=== PATIENT | female | born 1950 | race Caucasian/White ===

== ENCOUNTER → 2016-08-24 | Outpatient (CLI) | payer BC ==
--- NOTE | 2016-08-25 13:31 | MAMMOGRAPHY REPORT ---
BILATERAL DIGITAL SCREENING MAMMOGRAM WITH CAD: 08/24/2016 CLINICAL HISTORY: Routine screening. Patient has no complaints. TECHNIQUE: Current study was also evaluated with a Computer Aided Detection (CAD) system. Bilatera l CC and MLO views were obtained. COMPARISON: Comparison is made to exams dated: 06/04/2013 mammogram, 10/06/2011 mammogram - [facility], 12/22/2008, and 12/17/2008. BREAST COMPOSITION: There are scattered areas of fibroglandular density in both breasts. FINDINGS: No suspicious masses, calcifications, or areas of architectural distortion are noted in e ither breast. There has been no significant interval change compared to prior exams. IMPRESSION: ACR BI-RADS CATEGORY 1: NEGATIVE There is no mammographic evidence of malignancy. A 1 year screening mammogram is recommended. The p atient will receive written notification of the results. Approximately 10% of breast cancers are not detected with mammography. A negative mammographic repor t should not delay biopsy if a clinically suggestive mass is present. Ayaka Tuttle M.D. ah/:08/24/2016 15:42:44 Encoding Clerk: Nuvia BUCKLEY(Sherri)(Nam)([place]), [facility] letter sent: Normal 1/2 BI-RADS Code: ACR BI-RADS Category 1: Negative
== END | disposition home or self-care (01) ==
LOC: C.MAMM 14:23
PROVIDERS: ATTEND Family Medicine
DX: Z12.31 Encounter for screening mammogram for malignant neoplasm of breast (principal)

== ENCOUNTER → 2017-09-11 | Outpatient (CLI) | payer BC, OTHER | END | disposition home or self-care (01) | LOC: C.MAMM 10:20 | PROVIDERS: ATTEND Internal Medicine | DX: M85.852 Other specified disorders of bone density and structure, left thigh (principal) ==

== ENCOUNTER → 2017-10-16 | Outpatient (CLI) | payer BC ==
--- NOTE | 2017-10-16 12:47 | MAMMOGRAPHY REPORT ---
BILATERAL DIGITAL SCREENING MAMMOGRAM TOMOSYNTHESIS WITH CAD: 10/16/2017 CLINICAL HISTORY: Routine screening. Patient has no complaints. TECHNIQUE: Breast tomosynthesis in addition to standard 2D mammography was performed. Current study was also evaluated with a Computer Aided Detection (CAD) system. COMPARISON: Comparison is made to exams dated: 08/24/2016 mammogram, 06/04/2013 mammogram, 10/06/2011 [facility], 12/22/2008, and 12/17/2008. BREAST COMPOSITION: There are scattered areas of fibroglandular density in both breasts. FINDINGS: The parenchymal pattern is unchanged. No developing mass, architectural distortion or clus ter of suspicious microcalcifications is seen in either breast. IMPRESSION: ACR BI-RADS CATEGORY 2: BENIGN There is no mammographic evidence of malignancy. A 1 year screening mammogram is recommended. The pa tient will receive written notification of the results. Approximately 10% of breast cancers are not detected with mammography. A negative mammographic report should not delay biopsy if a clinically suggestive mass is present. Allie Jansen M.D. ay/:10/16/2017 12:30:39 Pull Socket Assembler: Sana Mancia [facility] letter sent: Normal /2 BI-RADS Code: ACR BI-RADS Category 2: Benign
== END | disposition home or self-care (01) ==
LOC: C.MAMM 11:54
PROVIDERS: ATTEND Internal Medicine
DX: Z12.31 Encounter for screening mammogram for malignant neoplasm of breast (principal)

== ENCOUNTER → 2018-01-15 | Outpatient (CLI) | payer BC ==
[2018-01-15 10:46] LABS: ALT/SGPT 26 U/L (12-78); AST/SGOT 16 U/L (15-37); BLOOD UREA NITROGEN 20 mg/dl (7-18); CALCIUM 8.6 mg/dl (8.5-10.1); CARBON DIOXIDE 28 mmol/L (21-32); CHOLESTEROL 243 mg/dl (0-200); CREATININE 0.95 mg/dl (0.60-1.20); GLUCOSE 102 mg/dl (70-99); LDL CHOLESTEROL CALCULATED 146 mg/dl; POTASSIUM 4.3 mmol/L (3.5-5.1); SODIUM 139 mmol/L (136-145)
== END | disposition home or self-care (01) ==
LOC: C.LABBC 07:38
PROVIDERS: ATTEND Internal Medicine
DX: E78.00 Pure hypercholesterolemia, unspecified (principal); I10 Essential (primary) hypertension; M85.80 Other specified disorders of bone density and structure, unspecified site

== ENCOUNTER 2019-04-21 17:00 | Inpatient (IN) ==
[2019-04-21] MEDS ORDERED: SODIUM CHLORIDE 0.9% 1000ML 1,000 ML IV ONE (17:21)
[2019-04-21] MEDS ORDERED: IBUPROFEN 200 MG TAB PO STA (17:28)
--- NOTE | 2019-04-21 17:59 | XRay Report ---
XR chest 1V portable CLINICAL HISTORY: Sepsis dyspnea COMPARISON STUDY: No previous studies for comparison. FINDINGS: Focal parenchymal infiltrate right midlung. Lungs otherwise appear clear. No significant ca rdiac enlargement. IMPRESSION: Focal parenchymal infiltrate right midlung. This should be followed at a later date with repeat chest film to ensure complete resolution The above report was generated using voice recognition software. It may contain grammatical, syntax or spelling errors. Electronically signed by: Yair Kumar M.D. 04/21/2019 5:58 PM
[2019-04-21 18:10] LABS: Basophils # (auto) 0.05 K/uL (0-0.2); Basophils % (auto) 0.4 %; Hemoglobin 14.8 g/dL (12.0-16.0); Immature Granulocytes # (auto) 0.02 K/uL (0.00-0.02); Immature Granulocytes % (auto) 0.2 %; Lymphocytes # (auto) 1.31 K/uL (1.2-3.4); Lymphocytes % (auto) 11.3 %; Mean Corpuscular Hemoglobin 31.8 pg (25-34); Mean Corpuscular Hgb Conc 34.4 g/dL (32-36); Mean Corpuscular Volume 92.5 fL (80-100); Mean Platelet Volume 9.4 fL (7.4-10.4); Monocytes # (auto) 0.85 K/uL (0.11-0.59); Monocytes % (auto) 7.3 %; Neutrophils # (auto) 9.41 K/uL (1.4-6.5); Neutrophils % (auto) 80.8 %; Platelet Count 289 K/uL (130-400); RDW Coefficient of Variation 14.1 % (11.5-14.5); RDW Standard Deviation 47.7 fL (36.4-46.3); Red Blood Count 4.65 M/uL (4.2-5.4); White Blood Count 11.64 K/uL (4.8-10.8)
[2019-04-21 18:21] LABS: Partial Thromboplastin Ratio 0.9; Partial Thromboplastin Time 24.1 Seconds (21.0-31.0); Prothrombin Time 10.7 Seconds (9.0-12.0)
[2019-04-21 18:26] LABS: Blood Urea Nitrogen 14 mg/dl (7-18); Carbon Dioxide 23 mmol/L (21-32); Chloride 103 mmol/L (98-107); Potassium 3.8 mmol/L (3.5-5.1); Sodium 136 mmol/L (136-145)
[2019-04-21 18:27] LABS: Alanine Aminotransferase 19 U/L (12-78); Albumin Level 3.9 gm/dl (3.4-5.0); Aspartate Aminotransferase 10 U/L (15-37); BUN Creatinine Ratio 12.8 (10-20); Calcium 9.1 mg/dl (8.5-10.1); Est GFR (African American) 62.5; Est GFR (Non-African American) 53.9; Glucose 113 mg/dl (70-99)
[2019-04-21 18:29] LABS: Albumin Globulin Ratio 0.9 (0.9-2); Alkaline Phosphatase 78 U/L (45-117); Bilirubin,Total 0.4 mg/dl (0.2-1); Globulin 4.2 gm/dl (2.5-4.0); Total Protein 8.1 gm/dl (6.4-8.2)
[2019-04-21] MEDS ORDERED: cefTRIAXone SODIUM 2,000 MG/70 ML BAG IV STA (18:29)
[2019-04-21] MEDS ORDERED: AZITHROMYCIN 500 MG in DEXTROSE 5% 250 ML IV STA (18:29)
[2019-04-21 18:52] LABS: Procalcitonin 0.06 ng/ml (0-0.5)
[2019-04-21 18:52] LABS: Influenza A virus by PCR Neg for Influ A (Neg); Influenza B virus by PCR Neg for Influ B (Neg)
[2019-04-21 19:00] LABS: Lyme Ab IgG w/WB Rflx Negative (Negative); Lyme Ab IgM w/WB Rflx Negative (Negative)
--- NOTE | 2019-04-21 20:03 | History & Physical Report ---
Date of Service April 21, 2019 Assessment & Plan (1) Pneumonia: Likely community acquired as patient has no risk factors for HCAP. In the ED she was satting as low as 85 on room air, which improved to 94 with supplemental O2. She was tachycardic at 102, and febrile at 39.4. Her WBC was mildly elevated at 11.64 with a left shift. Procalcitonin was WNL. Influenza negative. CXR remarkable for a focal parenchymal infiltrate right midlung. She was given one dose of IV ceftriaxone 2,000mg, one dose of IV Azithromycin 500mg and a 1L bolus of normal saline. Hospitalist recommend admission as inpatient. -continue zithormax 500mg, IV -continue Ceftriaxone, 1,000mg, IV - maintenance fluids: normal saline at 80mls/hr - mucinex ordered prn - tylenol ordered prn for fever - guanfacine ordered prn for cough Present on Admission?: Yes (2) Sepsis: - SIRS criteria met (temperature of 39.4, pulse 102) with infectious source identified (likely R middle lobar PNA) - clinically appearing well and hemodynamically stable - On IVF and IV antibiotics - blood cultures pending Present on Admission?: Yes (3) Hypoxemia: Currently satting 94 on 2L oxygen via NC -continuous oxygen ordered -pulse ox Status: Med/Surg FEN/GI: Regular diet. On maintenance fluids NSS at 80mls/hr DVT ppx: Lovenox, 40mg, SQ, daily CODE: FULL Present on Admission?: Yes History of Present Illness Primary Care Provider: Pepito Telles MD Mrs. Ramirez is an otherwise healthy 69 yo woman who presented to the ED this evening with fevers/chills, generalized weakness and fatigue, productive cough and chest tightness. She complained of a preceding viral prodrome of upper respiratory tract symptoms over the past 2 weeks. She started to feel improvement in these symptoms before suddenly getting worse 2 days ago. Her fevers were as high as 102.6 at home. Tylenol was used as an anti-pyretic every 6 hours. She attempted to get an appointment with her PCP today but was advised by nurse to come to the emergency room. She is not in any discomfort at present. She endorses several sick contacts, although no one with a diagnosis of PNA. She has not traveled outside the [place] int he past 6 months. No risk factors for HCAP (does not live in a fpc, not on a ventilator, no hospitalizations in the past 90 days). In the ED she was satting as low as 85 on room air, which improved with supplemental O2. She was tachycardic at 102, and febrile at 39.4. Her WBC was mildly elevated at 11.64 with a left shift. Procalcitonin was WNL. Influenza negative. CXR remarkable for a focal parenchymal infiltrate right midlung. She was given one dose of IV ceftriaxone 2,000mg, one dose of IV Azithromycin 500mg and a 1L bolus of normal saline. Allergies Allergy/AdvReac Type Severity Reaction Status Date / Time prochlorperazine Allergy Unknown Verified 04/21/19 20:02 COMPAZINE Allergy Unknown Anaphylaxis Uncoded 04/21/19 20:02 Home Medications Home Medications Medication Instructions Recorded Confirmed Type aspirin 81 mg tablet 81 mg PO QAM #30 tab 01/31/19 04/21/19 History loratadine 10 mg tablet 10 mg PO DAILY tab 01/31/19 04/21/19 History lisinopril 5 mg tablet 5 mg PO DAILY #90 tab 02/05/19 04/21/19 Rx cholecalciferol (vitamin D3) 8,000 unit PO DAILY 04/21/19 04/21/19 History Past Med/Surg History Medical History Osteopenia Hx of hysterectomy Hx of tooth extraction Surgical History Hx of colonoscopy Hx of laparoscopy Family History Aunt Breast cancer Diabetes Grandmother (Paternal) Lung cancer Myocardial infarction Heart disease Grandfather (Paternal) Prostate cancer Myocardial infarction Heart disease Father Prostate cancer Myocardial infarction Heart disease Mother Diabetes Heart disease Hypertension Hypothyroidism Pure hypercholesterolemia Lung disease Histoplasmosis Grandmother (Maternal) Diabetes Heart disease Grandfather (Maternal) Diabetes Heart disease Social History Preferred Language: Japanese Communication Ability: Effective Visual Impairment: Limited Hearing Ability: Normal Naval Engineer Required: No Beliefs That Will Affect Care: None marital status: Current Living Situation: Spouse current occupational status: retired current occupation: professor Feels Safe at Home: Yes Smoking Status: Never smoker Second Hand Exposure: No ; Hx Alcohol Use: Yes Alcohol type: wine Alcohol Intake Frequency: Weekly Hx Substance Use: No Childhood Exposure to Second-Hand Smoke: No caffeine: Yes Dental Care, Regularly: Yes Physical Activity Frequency: Daily Seatbelt Use: always Sunscreen Use: Yes Review of Systems Constitutional: + fever, + chills, + fatigue and + weakness Ear, Nose, Mouth, Throat: no ear pain, no nasal congestion and no sore throat Respiratory: + cough, + chest congestion, + dyspnea and + sputum production Cardiovascular: no chest pain, no palpitations and no edema Physical Exam Constitutional: WD/WN, vitals as above cooperative; no acute distress Eyes: PERRL, conjunctivae normal, anicteric sclerae ENMT: external ear and nose normal, oropharynx normal Ears: no TM abnormality Nose: no nasal discharge and no sinus tenderness Mouth: no oropharynx abnormality Throat: uvula midline; no tonsil abnormality Neck: trachea midline Respiratory: normal respiratory effort and + cough; no respiratory distress, no labored breathing, no retractions, does not use accessory muscles and no audible wheezes Auscultation: + crackles (R lower and middle lobes) and + egophony (R lower/middle lobe) Cardiovascular: Rate/Rhythm: regular rate and regular rhythm Heart Sounds: normal S1, normal S2 and + murmur (functional) Gastrointestinal (Abdomen): normal bowel sounds, soft, nontender, no hepatosplenomegaly Musculoskeletal: Head/Neck/Chest: normocephalic and head atraumatic Skin: no rashes, warm and dry Psychiatric: A+Ox3, euthymic affect Lymphatic: no cervical lymphadenopathy Results & Data Vital Signs (Past 12 Hours) Vital Signs Temp Pulse Pulse Resp BP BP Pulse Ox 04/21/19 19:34 38.2 C H 04/21/19 19:32 86 20 149/78 H 94 04/21/19 19:06 88 17 169/75 H 95 04/21/19 18:48 85 L 04/21/19 18:04 93 04/21/19 17:05 39.4 C H 102 H 20 147/79 H 96 Laboratory Results 04/21/19 04/21/19 04/21/19 Range/Units 17:57 17:52 17:52 WBC (4.8-10.8) K/uL RBC (4.2-5.4) M/uL Hgb (12.0-16.0) g/dL Hct (37-47) % MCV (80-100) fL MCH (25-34) pg MCHC (32-36) g/dL RDW Std Deviation (36.4-46.3) fL RDW Coeff of Kitty (11.5-14.5) % Plt Count (130-400) K/uL MPV (7.4-10.4) fL Immature Gran % (Auto) % Neut % (Auto) % Lymph % (Auto) % [place] % (Auto) % Eos % (Auto) % Baso % (Auto) % Immature Gran # (Auto) (0.00-0.02) K/uL Neut # (Auto) (1.4-6.5) K/uL Lymph # (Auto) (1.2-3.4) K/uL [place] # (Auto) (0.11-0.59) K/uL Eos # (Auto) (0-0.5) K/uL Baso # (Auto) (0-0.2) K/uL PT (9.0-12.0) Seconds INR (0.9-1.1) APTT (21.0-31.0) Seconds PTT Ratio Sodium 136 (136-145) mmol/L Potassium 3.8 (3.5-5.1) mmol/L Chloride 103 (98-107) mmol/L Carbon Dioxide 23 (21-32) mmol/L Anion Gap 10.0 (3-11) BUN 14 (7-18) mg/dl Creatinine 1.06 (0.6-1.2) mg/dl Est Cr Clr Drug Dosing Not Reportable Est GFR ( Amer) 62.5 Est GFR (Non-Af Amer) 53.9 BUN/Creatinine Ratio 12.8 (10-20) Glucose 113 H (70-99) mg/dl Lactate 1.1 (0.4-2.0) mmol/L Calcium 9.1 (8.5-10.1) mg/dl Total Bilirubin 0.4 (0.2-1) mg/dl AST 10 L (15-37) U/L ALT 19 (12-78) U/L Alkaline Phosphatase 78 (45-117) U/L Total Protein 8.1 (6.4-8.2) gm/dl Albumin 3.9 (3.4-5.0) gm/dl Globulin 4.2 H (2.5-4.0) gm/dl Albumin/Globulin Ratio 0.9 (0.9-2) Procalcitonin (0-0.5) ng/ml Anaplasma Smear Lyme Disease IgG Ab (Negative) Lyme Disease IgM Ab (Negative) Influenza Type A (PCR) Neg for Influ A (Neg) Influenza Type B (PCR) Neg for Influ B (Neg) 04/21/19 04/21/19 04/21/19 Range/Units 17:52 17:52 17:52 WBC 11.64 H (4.8-10.8) K/uL RBC 4.65 (4.2-5.4) M/uL Hgb 14.8 (12.0-16.0) g/dL Hct 43.0 (37-47) % MCV 92.5 (80-100) fL MCH 31.8 (25-34) pg MCHC 34.4 (32-36) g/dL RDW Std Deviation 47.7 H (36.4-46.3) fL RDW Coeff of Kitty 14.1 (11.5-14.5) % Plt Count 289 (130-400) K/uL MPV 9.4 (7.4-10.4) fL Immature Gran % (Auto) 0.2 % Neut % (Auto) 80.8 % Lymph % (Auto) 11.3 % [place] % (Auto) 7.3 % Eos % (Auto) 0.0 % Baso % (Auto) 0.4 % Immature Gran # (Auto) 0.02 (0.00-0.02) K/uL Neut # (Auto) 9.41 H (1.4-6.5) K/uL Lymph # (Auto) 1.31 (1.2-3.4) K/uL [place] # (Auto) 0.85 H (0.11-0.59) K/uL Eos # (Auto) 0.00 (0-0.5) K/uL Baso # (Auto) 0.05 (0-0.2) K/uL PT 10.7 (9.0-12.0) Seconds INR 1.0 (0.9-1.1) APTT 24.1 (21.0-31.0) Seconds PTT Ratio 0.9 Sodium (136-145) mmol/L Potassium (3.5-5.1) mmol/L Chloride (98-107) mmol/L Carbon Dioxide (21-32) mmol/L Anion Gap (3-11) BUN (7-18) mg/dl Creatinine (0.6-1.2) mg/dl Est Cr Clr Drug Dosing Est GFR ( Amer) Est GFR (Non-Af Amer) BUN/Creatinine Ratio (10-20) Glucose (70-99) mg/dl Lactate (0.4-2.0) mmol/L Calcium (8.5-10.1) mg/dl Total Bilirubin (0.2-1) mg/dl AST (15-37) U/L ALT (12-78) U/L Alkaline Phosphatase (45-117) U/L Total Protein (6.4-8.2) gm/dl Albumin (3.4-5.0) gm/dl Globulin (2.5-4.0) gm/dl Albumin/Globulin Ratio (0.9-2) Procalcitonin 0.06 (0-0.5) ng/ml Anaplasma Smear See Comment Lyme Disease IgG Ab Negative (Negative) Lyme Disease IgM Ab Negative (Negative) Influenza Type A (PCR) (Neg) Influenza Type B (PCR) (Neg) Diagnostic Findings XR chest 1V portable CLINICAL HISTORY: Sepsis dyspnea COMPARISON STUDY: No previous studies for comparison. FINDINGS: Focal parenchymal infiltrate right midlung. Lungs otherwise appear clear. No significant cardiac enlargement. IMPRESSION: Focal parenchymal infiltrate right midlung. This should be followed at a later date with repeat chest film to ensure complete resolution The above report was generated using voice recognition software. It may contain grammatical, syntax or spelling errors. Electronically signed by: Yair Kumar M.D. 04/21/2019 5:58 PM Medications Administered Current Inpatient Medications Azithromycin 500 mg/ Dextrose 255 mls @ 127.5 mls/hr IV NOW STA Stop: 04/21/19 20:28 Last Admin: 04/21/19 19:32 Dose: 127.5 mls/hr Documented by: Code Status & VTE Plan VTE Prophylaxis Plan VTE Prophylaxis will be ordered: Yes Supervising Physician Co-Signing Physician Notes Patient seen and examined, chart reviewed, case discussed with Dr. Wright and I agree with her assessment and plan as documented above. Briefly, patient is a 69yo C female presenting with CAP. Patient is febrile, tachycardic, O2 required in ER due to sat of 85%. Now improved. On exam she is febrile, tachycardic otherwise HD stable, NAD, well appearing Skin - no rash HEENT - NC/AT, PERRL, EOMI, MMM, neck supple Heart - +S1/S2, regular, 3/6 GEOFFREY Lungs - +crackles right mid-lung, no wheezes Abd - +BS, soft, NT/ND Ext - no edema Labs and images reviewed. +Leukocytosis. +RML infiltrate noted on CXR Assessment/Plan: 69yo healthy female presenting with CAP -Azithromycin/Ceftriaxone/symptomatic management -Supplemental O2 as needed -Remainder of plan as above PG Care Time/CCT Total # of Minutes Spent Total Time Spent with Patient: Total time spent is greater than 50% in coordination of care (as documented) at patient's floor/unit and/or counseling patient: Resident Activity Tracking Resident Involvement: Resident Care Provided Care Provided: Adult Hospital Medicine (1) Pneumonia Laterality: right Lung location: middle lobe of lung Pneumonia type: due to unspecified organism Qualified Code(s): J18.1 - Lobar pneumonia, unspecified organism
[2019-04-21] MEDS ORDERED: GUANFACINE HCL 1 MG TAB PO SCH (21:05)
[2019-04-21] MEDS ORDERED: cefTRIAXone SODIUM 1,000 MG/50 ML BAG IV STA (21:05)
[2019-04-21] MEDS ORDERED: ALUMINUM/MAGNESIUM SUSP 30 ML UDC PO PRN (21:05)
[2019-04-21] MEDS ORDERED: ONDANSETRON INJ 2 MG/ML 2 ML VIAL IV PRN (21:05)
[2019-04-21] MEDS ORDERED: AZITHROMYCIN 500 MG in DEXTROSE 5% 250 ML IV SCH (21:05)
[2019-04-21] MEDS ORDERED: GUANFACINE HCL 1 MG TAB PO PRN (21:34)
[2019-04-21] MEDS: SODIUM CHLORIDE 0.9% 1000ML 1,000 ML IV SCH (21:49)
[2019-04-21] MEDS: guaiFENesin 600 MG TABCR PO SCH (22:31)
[2019-04-21] MEDS: ENOXAPARIN INJ 40 MG/0.4 ML SYR SQ SCH (22:31)
--- NOTE | 2019-04-22 00:27 | Emergency Department Note ---
Entered by Dimple Wolfe acting as a scribe for Robert Henriquez MD History of Present Illness General Chief complaint: Flu Like Symptoms Stated complaint: cough, chest tighness, fever Time Seen by Provider: 04/21/19 17:12 Source: patient History of Present Illness Onset (ago): week(s) 3 Location: left (lung) and right (lung) Severity: similar to prior episodes Pain Consistency: + other (persistent) Maximum Pain Intensity: 1 Quality: + other (cough) Relieved By: + medication (tylenol) Exacerbated By: + movement Associated symptoms: + cough, + fever/chills and + headaches; no chest pain, no nausea/vomiting, no rash and no other (abdominal pain, dysuria, hematuria.) Treatments prior to arrival: other (tylenol) The patient is a 69 year old female presenting to the Emergency Department complaining of a persistent cough starting 3 weeks ago. The patient reports that she has a cough that is bringing up a green colored mucous. She states that her cough recently has been dry for the past few days. She explains that she has been experiencing fever and chills. She notes that her highest fever was 102.6F. She adds that when she gets up and moves around she experienced chills. The patient reports that she had a headache earlier today. She states that she took Tylenol for this headache at 1430 [employer] and that it helped relieve her headache. She explains that she experienced similar symptoms years ago and was diagnosed with pneumonia at that time. The patient denies nausea, vomiting, abdominal pain, dysuria, hematuria, rash and any known recent tick bites. Home Medications Home Medications Medication Instructions Recorded Confirmed Type aspirin 81 mg tablet 81 mg PO QAM #30 tab 01/31/19 04/21/19 History loratadine 10 mg tablet 10 mg PO DAILY tab 01/31/19 04/21/19 History lisinopril 5 mg tablet 5 mg PO DAILY #90 tab 02/05/19 04/21/19 Rx cholecalciferol (vitamin D3) 8,000 unit PO DAILY 04/21/19 04/21/19 History Allergies Allergy/AdvReac Type Severity Reaction Status Date / Time prochlorperazine Allergy Severe Anaphylaxis Verified 04/21/19 21:24 Past Med/Surg History Medical History Osteopenia Hx of hysterectomy Hx of tooth extraction Surgical History Hx of colonoscopy Hx of laparoscopy Family History Aunt Breast cancer Diabetes Grandmother (Paternal) Lung cancer Myocardial infarction Heart disease Grandfather (Paternal) Prostate cancer Myocardial infarction Heart disease Father Prostate cancer Myocardial infarction Heart disease Mother Diabetes Heart disease Hypertension Hypothyroidism Pure hypercholesterolemia Lung disease Histoplasmosis Grandmother (Maternal) Diabetes Heart disease Grandfather (Maternal) Diabetes Heart disease Social History Preferred Language: Arabic Communication Ability: Effective Visual Impairment: Limited Hearing Ability: Normal Jointer Submarine Cable Required: No Beliefs That Will Affect Care: None marital status: Current Living Situation: Spouse current occupational status: retired current occupation: professor Feels Safe at Home: Yes Safety Concerns: Feels Safe At This Time Smoking Status: Never smoker Second Hand Exposure: No ; Hx Alcohol Use: Yes Alcohol type: wine Alcohol Intake Frequency: Weekly Hx Substance Use: No Childhood Exposure to Second-Hand Smoke: No caffeine: Yes Dental Care, Regularly: Yes Physical Activity Frequency: Daily Seatbelt Use: always Sunscreen Use: Yes Review of Systems See HPI for pertinent positives & negatives. and A total of 10 systems reviewed and were otherwise negative Physical Exam Vital Signs Vital Signs - 24 hr 04/21/19 17:05 04/21/19 18:04 04/21/19 18:48 Temperature 39.4 C H Temperature Source Oral Sepsis Recent Fever Within 48 Hours No Sepsis Action Taken by Nursing No Action Required Oxygen Flow Rate - Titration 2 Pulse Oximetry Post Tiitration 96 Pulse Rate 102 H Pulse Rate [Finger] Respiratory Rate 20 Respiratory Effort / Characteristics Non-Labored Respiratory Depth Normal Blood Pressure 147/79 H Blood Pressure [Right Arm] Blood Pressure Mean 101 Blood Pressure Mean [Right Arm] Pulse Oximetry 96 93 85 L Oxygen Delivery Method Room Air Room Air Nasal Cannula Oxygen Flow Rate 0 04/21/19 19:06 04/21/19 19:32 04/21/19 19:34 Temperature 38.2 C H Temperature Source Oral Sepsis Recent Fever Within 48 Hours Sepsis Action Taken by Nursing Oxygen Flow Rate - Titration Pulse Oximetry Post Tiitration Pulse Rate Pulse Rate [Finger] 88 86 Respiratory Rate 17 20 Respiratory Effort / Characteristics Respiratory Depth Blood Pressure Blood Pressure [Right Arm] 169/75 H 149/78 H Blood Pressure Mean Blood Pressure Mean [Right Arm] 106 101 Pulse Oximetry 95 94 Oxygen Delivery Method Nasal Cannula Nasal Cannula Oxygen Flow Rate 2 2 General: Mildly-ill appearing middle aged female in no acute distress. Frequently coughing. HEENT: Normal cephalic atraumatic. Pupils are equal round and reactive to light. Extraocular movements are intact. Oropharynx is pink with moist mucous membranes. No swelling of the mouth lips or tongue. Neck: Supple with a midline trachea. No meningeal signs or stiffness, no JVD or bruits. No Stridor. Chest: Clear to auscultation bilaterally. No wheezes or rhonchi. No increased work of breathing. Heart: regular rate and rhythm. Abdomen: Soft nontender, nondistended without rebound guarding or rigidity. Extremities: No cyanosis clubbing or edema. No calf tenderness or asymmetry Spine/Back. Non tender to palpation. No CVA tenderness Skin: Good turgor without rashes. Neurologic exam: Cranial nerves two through 12 are intact. Motor and sensation are intact and symmetrical throughout. Course 1715: The patient was evaluated in room C9, and a complete history and physical examination were performed. 1839: The patients oxygen saturation was low in the mid 90s. I will talk to the hospitalist team. 1844: I discussed the patient's case with Dr. Abrahan JAMISON hospitalist. She will evaluate the patient for further management. Administered Medications Enoxaparin Sodium (Lovenox) 40 mg SQ Q24H OLVIN Stop: 05/21/19 21:59 Last Admin: 04/21/19 22:31 Dose: Not Given Documented by: [id number] Guaifenesin (Mucinex) 600 mg PO Q12 OLVIN Stop: 05/21/19 21:29 Last Admin: 04/21/19 22:31 Dose: 600 mg Documented by: [id number] Sodium Chloride (Nss 1000ml) 1,000 mls @ 80 mls/hr IV .[id number] OLVIN Stop: 04/22/19 22:04 Last Admin: 04/21/19 21:49 Dose: 80 mls/hr Documented by: [id number] Discontinued Medications Sodium Chloride (Nss 1000ml) 1,000 mls @ 999 mls/hr IV .[id number] ONE Stop: 04/21/19 18:21 Last Infusion: 04/21/19 19:05 Dose: 0 mls/hr Documented by: [id number] Admin: 04/21/19 18:03 Dose: 999 mls/hr Documented by: [id number] Ceftriaxone Sodium (Rocephin) 2,000 mg in 70 mls @ 140 mls/hr IV NOW STA Stop: 04/21/19 18:58 Last Infusion: 04/21/19 19:17 Dose: 0 mls/hr Documented by: [id number] Admin: 04/21/19 18:46 Dose: 140 mls/hr Documented by: [id number] Azithromycin 500 mg/ Dextrose 255 mls @ 127.5 mls/hr IV NOW STA Stop: 04/21/19 20:28 Last Infusion: 04/21/19 22:34 Dose: 0 mls/hr Documented by: [id number] Admin: 04/21/19 19:32 Dose: 127.5 mls/hr Documented by: [id number] Ibuprofen (Advil) 400 mg PO NOW STA Stop: 04/21/19 17:29 Last Admin: 04/21/19 18:03 Dose: 400 mg Documented by: [id number] Medical Decision Making Differential Diagnosis Differentials include pneumonia, bronchitis, sepsis, tick borne illness, electrolyte or metabolic abnormality and UTI amongst others. Medical Records Attestation: I reviewed the patient's medical records. Home Medications Current Medication List: was personally reviewed by me Laboratory Data Attestation: I reviewed the patient's lab results. Result diagrams: 04/21/19 17:52 04/21/19 17:52 Lab Results 04/21/19 04/21/19 04/21/19 Range/Units 17:52 17:52 17:52 WBC 11.64 H (4.8-10.8) K/uL RBC 4.65 (4.2-5.4) M/uL Hgb 14.8 (12.0-16.0) g/dL Hct 43.0 (37-47) % MCV 92.5 (80-100) fL MCH 31.8 (25-34) pg MCHC 34.4 (32-36) g/dL RDW Std Deviation 47.7 H (36.4-46.3) fL RDW Coeff of Kitty 14.1 (11.5-14.5) % Plt Count 289 (130-400) K/uL MPV 9.4 (7.4-10.4) fL Immature Gran % (Auto) 0.2 % Neut % (Auto) 80.8 % Lymph % (Auto) 11.3 % Jenkins % (Auto) 7.3 % Eos % (Auto) 0.0 % Baso % (Auto) 0.4 % Immature Gran # (Auto) 0.02 (0.00-0.02) K/uL Neut # (Auto) 9.41 H (1.4-6.5) K/uL Lymph # (Auto) 1.31 (1.2-3.4) K/uL Jenkins # (Auto) 0.85 H (0.11-0.59) K/uL Eos # (Auto) 0.00 (0-0.5) K/uL Baso # (Auto) 0.05 (0-0.2) K/uL PT 10.7 (9.0-12.0) Seconds INR 1.0 (0.9-1.1) APTT 24.1 (21.0-31.0) Seconds PTT Ratio 0.9 Sodium (136-145) mmol/L Potassium (3.5-5.1) mmol/L Chloride (98-107) mmol/L Carbon Dioxide (21-32) mmol/L Anion Gap (3-11) BUN (7-18) mg/dl Creatinine (0.6-1.2) mg/dl Est Cr Clr Drug Dosing Est GFR ( Amer) Est GFR (Non-Af Amer) BUN/Creatinine Ratio (10-20) Glucose (70-99) mg/dl Lactate (0.4-2.0) mmol/L Calcium (8.5-10.1) mg/dl Total Bilirubin (0.2-1) mg/dl AST (15-37) U/L ALT (12-78) U/L Alkaline Phosphatase (45-117) U/L Total Protein (6.4-8.2) gm/dl Albumin (3.4-5.0) gm/dl Globulin (2.5-4.0) gm/dl Albumin/Globulin Ratio (0.9-2) Procalcitonin 0.06 (0-0.5) ng/ml Anaplasma Smear See Comment Lyme Disease IgG Ab Negative (Negative) Lyme Disease IgM Ab Negative (Negative) Influenza Type A (PCR) (Neg) Influenza Type B (PCR) (Neg) 04/21/19 04/21/19 04/21/19 Range/Units 17:52 17:52 17:57 WBC (4.8-10.8) K/uL RBC (4.2-5.4) M/uL Hgb (12.0-16.0) g/dL Hct (37-47) % MCV (80-100) fL MCH (25-34) pg MCHC (32-36) g/dL RDW Std Deviation (36.4-46.3) fL RDW Coeff of Kitty (11.5-14.5) % Plt Count (130-400) K/uL MPV (7.4-10.4) fL Immature Gran % (Auto) % Neut % (Auto) % Lymph % (Auto) % Jenkins % (Auto) % Eos % (Auto) % Baso % (Auto) % Immature Gran # (Auto) (0.00-0.02) K/uL Neut # (Auto) (1.4-6.5) K/uL Lymph # (Auto) (1.2-3.4) K/uL Jenkins # (Auto) (0.11-0.59) K/uL Eos # (Auto) (0-0.5) K/uL Baso # (Auto) (0-0.2) K/uL PT (9.0-12.0) Seconds INR (0.9-1.1) APTT (21.0-31.0) Seconds PTT Ratio Sodium 136 (136-145) mmol/L Potassium 3.8 (3.5-5.1) mmol/L Chloride 103 (98-107) mmol/L Carbon Dioxide 23 (21-32) mmol/L Anion Gap 10.0 (3-11) BUN 14 (7-18) mg/dl Creatinine 1.06 (0.6-1.2) mg/dl Est Cr Clr Drug Dosing Not Reportable Est GFR ( Amer) 62.5 Est GFR (Non-Af Amer) 53.9 BUN/Creatinine Ratio 12.8 (10-20) Glucose 113 H (70-99) mg/dl Lactate 1.1 (0.4-2.0) mmol/L Calcium 9.1 (8.5-10.1) mg/dl Total Bilirubin 0.4 (0.2-1) mg/dl AST 10 L (15-37) U/L ALT 19 (12-78) U/L Alkaline Phosphatase 78 (45-117) U/L Total Protein 8.1 (6.4-8.2) gm/dl Albumin 3.9 (3.4-5.0) gm/dl Globulin 4.2 H (2.5-4.0) gm/dl Albumin/Globulin Ratio 0.9 (0.9-2) Procalcitonin (0-0.5) ng/ml Anaplasma Smear Lyme Disease IgG Ab (Negative) Lyme Disease IgM Ab (Negative) Influenza Type A (PCR) Neg for Influ A (Neg) Influenza Type B (PCR) Neg for Influ B (Neg) Imaging Data Radiologist's Impression: Radiology results as stated below per my review and the radiologist's interpretation: XR chest 1V portable CLINICAL HISTORY: Sepsis dyspnea COMPARISON STUDY: No previous studies for comparison. FINDINGS: Focal parenchymal infiltrate right midlung. Lungs otherwise appear clear. No significant cardiac enlargement. IMPRESSION: Focal parenchymal infiltrate right midlung. This should be followed at a later date with repeat chest film to ensure complete resolution The above report was generated using voice recognition software. It may contain grammatical, syntax or spelling errors. Electronically signed by: Yair Kumar M.D. 04/21/2019 5:58 PM Blood Pressure Blood Pressure Findings: Elevated blood pressure Blood Pressure Disposition: further management by hospitalist [facility] Narrative This patient comes in as described above. She has been sick for about 3 weeks with respiratory type symptoms and a cough. She initially got sick and then felt well and in the last several days got sick again. She has been coughing. She has had a high fever. On my exam, she is mildly ill-appearing but nontoxic and non-lethargic. She has no meningeal signs or stiffness. She is stable vital signs in regards to blood pressure and pulse. she was however intermittently hypoxemic with an O2 sat in the mid 80s. This clears at times when she does cough. IV access established and she was hydrated with IV normal saline fluid bolus. multiple blood testing was obtained and a sepsis order set was entered. Blood cultures were obtained. Lactic acid is not elevated. Her white count is mildly elevated. Chest x-ray does suggest a pneumonia. She was given IV Rocephin and IV azithromycin. She has not been admitted to the hospital in many years and this is a community-acquired pneumonia picture at this point likely. She has no significant electrolyte or metabolic abnormaliti es. I did do think she needs to be admitted/observed considering that she has pneumonia and hypoxemia and concern for possible sepsis. Her flu test was negative. I did consult [facility] hospitalist to see her for these measures. Impression & Plan Pneumonia, Hypoxemia, Sepsis, Fever Discharge Plan Visit Data *Final* Discharge Date/Time: 04/21/19 20:35 Chief Complaint: Flu Like Symptoms Stated Complaint: cough, chest tighness, fever ED Provider: Robert Henriquez Discharge Problem: Pneumonia, Hypoxemia, Sepsis, Fever Patient Disposition: Admitted As Inpatient Discharge Instructions Interventions: ED Discharge Assessment Last Done: 04/21/19 20:35 The scribe's documentation has been prepared under my direction and personally reviewed by me in its entirety. I confirm that the note above accurately reflects all work, treatment, procedures, and medical decision making performed by me.
[2019-04-22] MEDS: ACETAMINOPHEN 325 MG TAB PO PRN ×3 (02:48→22:56)
[2019-04-22 08:15] LABS: Basophils # (auto) 0.02 K/uL (0-0.2); Basophils % (auto) 0.3 %; Eosinophils # (auto) 0.02 K/uL (0-0.5); Eosinophils % (auto) 0.3 %; Hemoglobin 13.3 g/dL (12.0-16.0); Immature Granulocytes # (auto) 0.01 K/uL (0.00-0.02); Immature Granulocytes % (auto) 0.1 %; Lymphocytes # (auto) 1.14 K/uL (1.2-3.4); Lymphocytes % (auto) 15.6 %; Mean Corpuscular Hemoglobin 30.9 pg (25-34); Mean Corpuscular Hgb Conc 32.4 g/dL (32-36); Mean Corpuscular Volume 95.1 fL (80-100); Mean Platelet Volume 9.6 fL (7.4-10.4); Monocytes # (auto) 0.64 K/uL (0.11-0.59); Monocytes % (auto) 8.8 %; Neutrophils # (auto) 5.48 K/uL (1.4-6.5); Neutrophils % (auto) 74.9 %; Platelet Count 230 K/uL (130-400); RDW Coefficient of Variation 14.3 % (11.5-14.5); RDW Standard Deviation 49.6 fL (36.4-46.3); Red Blood Count 4.31 M/uL (4.2-5.4); White Blood Count 7.31 K/uL (4.8-10.8)
[2019-04-22 08:41] LABS: BUN Creatinine Ratio 11.3 (10-20); Calcium 8.4 mg/dl (8.5-10.1); Creatinine Clr Calc Pharmacy 53.2 ml/min; Est GFR (Non-African American) 57.8; Potassium 3.9 mmol/L (3.5-5.1)
[2019-04-22] MEDS: cefTRIAXone SODIUM 1,000 MG/50 ML BAG IV SCH (08:47)
[2019-04-22] MEDS: ASPIRIN 81 MG ECTAB PO SCH (08:47)
[2019-04-22] MEDS: guaiFENesin 600 MG TABCR PO SCH ×2 (08:47→21:10)
[2019-04-22] MEDS: lisinopriL 5 MG TAB PO SCH (08:48)
[2019-04-22] MEDS: VITAMIN B COMPLEX TAB PO SCH (08:48)
[2019-04-22] MEDS: LORATADINE 10 MG TAB PO SCH (08:48)
[2019-04-22] MEDS ORDERED: AZITHROMYCIN 500 MG in DEXTROSE 5% 250 ML IV SCH (09:00)
[2019-04-22] MEDS: SODIUM CHLORIDE 0.9% 1000ML 1,000 ML IV SCH (11:02)
--- NOTE | 2019-04-22 13:55 | Hospitalist Progress Note ---
Date of Service April 22, 2019 Assessment & Plan (1) Pneumonia: Likely community acquired as patient has no risk factors for HCAP. In the ED she was satting as low as 85 on room air, which improved to 94 with supplemental O2. She was tachycardic at 102, and febrile at 39.4. Her WBC was mildly elevated at 11.64 with a left shift. Procalcitonin was WNL. Influenza negative. CXR remarkable for a focal parenchymal infiltrate right midlung. She was given one dose of IV ceftriaxone 2,000mg, one dose of IV Azithromycin 500mg and a 1L bolus of normal saline. Much improved already but still spiking fevers, leukocytosis is now resolved. Blood cultures no growth to date Not able to give a sputum culture is nonproductive cough. Is now weaned off oxygen -continue ceftriaxone, azithromycin and convert to p.o.-will complete a 5-7-day course including once converted to p.o. antibiotics -Okay to DC IV fluids after this bag is finished - mucinex -Discontinue guanfacine as is not for cough - tylenol ordered prn for fever -Will need follow-up chest x-ray in 4 to 6 weeks to ensure resolution of infiltrate (2) Sepsis: - SIRS criteria met (temperature of 39.4, pulse 102) with infectious source identified-pneumonia radiographically and clinically -Much improved Treated with IV fluids and IV antibiotics - blood cultures pending-no growth to date (3) Hypoxemia: Was hypoxic upon admission which is now resolved with treating pneumonia -Follow pulse ox and continue supplemental O2 as needed keep pulse ox greater than 92% (4) HTN (hypertension), benign: Controlled -Continue lisinopril 5 mg daily -Continue aspirin 81 mg daily (5) DVT prophylaxis: DVT ppx: Lovenox, 40mg, SQ, daily CODE: FULL Disposition-remain hospitalized but doing well-if remains afebrile and blood cultures no growth-could discharge in the next 1 to 2 days Subjective Patient reports some cough but not productive. Feels much improved today from previous. No further tightness in the chest. No chest pain. No nausea, is tolerating p.o. No abdominal pain or diarrhea. Still spiking fevers which is concerning her. Is now weaned off oxygen Review of Systems Review of Systems: All systems reviewed & are unremarkable except as noted in HPI & below Physical Exam Constitutional: WD/WN, vitals as above Eyes: + anicteric sclerae ENMT: external ear and nose normal, oropharynx normal Neck: trachea midline, no thyromegaly Respiratory: normal respiratory effort, lungs clear to auscultation Cardiovascular: RRR, no murmur, no edema Gastrointestinal (Abdomen): normal bowel sounds, soft, nontender, no hepatosplenomegaly Musculoskeletal: Extremities: extremities normal to inspection; no cyanosis and no clubbing Skin: no rashes, warm and dry Neurologic: moves all extremities and awake; no focal motor deficits Psychiatric: A+Ox3, euthymic affect Results & Data Vital Signs (Past 12 Hours) Vital Signs Temp Pulse Resp BP Pulse Ox 04/22/19 12:35 38.1 C H 04/22/19 11:38 39.1 C H 85 22 133/84 98 04/22/19 11:10 38.6 C H 04/22/19 07:20 37.2 C 71 108/72 94 04/22/19 04:02 37.4 C 04/22/19 02:47 37.8 C H Laboratory Results 04/22/19 04/22/19 Range/Units 07:33 07:33 WBC 7.31 (4.8-10.8) K/uL RBC 4.31 (4.2-5.4) M/uL Hgb 13.3 (12.0-16.0) g/dL Hct 41.0 (37-47) % MCV 95.1 (80-100) fL MCH 30.9 (25-34) pg MCHC 32.4 (32-36) g/dL RDW Std Deviation 49.6 H (36.4-46.3) fL RDW Coeff of Kitty 14.3 (11.5-14.5) % Plt Count 230 (130-400) K/uL MPV 9.6 (7.4-10.4) fL Immature Gran % (Auto) 0.1 % Neut % (Auto) 74.9 % Lymph % (Auto) 15.6 % [place] % (Auto) 8.8 % Eos % (Auto) 0.3 % Baso % (Auto) 0.3 % Immature Gran # (Auto) 0.01 (0.00-0.02) K/uL Neut # (Auto) 5.48 (1.4-6.5) K/uL Lymph # (Auto) 1.14 L (1.2-3.4) K/uL [place] # (Auto) 0.64 H (0.11-0.59) K/uL Eos # (Auto) 0.02 (0-0.5) K/uL Baso # (Auto) 0.02 (0-0.2) K/uL Sodium 139 (136-145) mmol/L Potassium 3.9 (3.5-5.1) mmol/L Chloride 109 H (98-107) mmol/L Carbon Dioxide 25 (21-32) mmol/L Anion Gap 5.0 (3-11) BUN 11 (7-18) mg/dl Creatinine 1.00 (0.6-1.2) mg/dl Est Cr Clr Drug Dosing 53.2 ml/min Est GFR ( Amer) 67.0 Est GFR (Non-Af Amer) 57.8 BUN/Creatinine Ratio 11.3 (10-20) Glucose 106 H (70-99) mg/dl Calcium 8.4 L (8.5-10.1) mg/dl PG Care Time/CCT Total # of Minutes Spent Total Time Spent with Patient: Total time spent is greater than 50% in coordination of care (as documented) at patient's floor/unit and/or counseling patient: (1) Sepsis Sepsis acute organ dysfunction status: unspecified Sepsis type: sepsis due to unspecified organism Qualified Code(s): A41.9 - Sepsis, unspecified organism (2) Pneumonia Laterality: right Lung location: middle lobe of lung Pneumonia type: due to unspecified organism Qualified Code(s): J18.1 - Lobar pneumonia, unspecified organism
[2019-04-22] MEDS: IBUPROFEN 600 MG TAB PO PRN (16:55)
[2019-04-22] MEDS: ENOXAPARIN INJ 40 MG/0.4 ML SYR SQ SCH (21:11)
[2019-04-23] MEDS: IBUPROFEN 600 MG TAB PO PRN (04:29)
[2019-04-23 08:37] LABS: Basophils # (auto) 0.02 K/uL (0-0.2); Basophils % (auto) 0.3 %; Eosinophils # (auto) 0.01 K/uL (0-0.5); Eosinophils % (auto) 0.1 %; Hematocrit (blood only) 38.4 % (37-47); Hemoglobin 12.7 g/dL (12.0-16.0); Immature Granulocytes # (auto) 0.01 K/uL (0.00-0.02); Immature Granulocytes % (auto) 0.1 %; Lymphocytes # (auto) 1.19 K/uL (1.2-3.4); Lymphocytes % (auto) 17.7 %; Mean Corpuscular Hemoglobin 31.1 pg (25-34); Mean Corpuscular Hgb Conc 33.1 g/dL (32-36); Mean Corpuscular Volume 94.1 fL (80-100); Mean Platelet Volume 9.5 fL (7.4-10.4); Monocytes # (auto) 0.39 K/uL (0.11-0.59); Monocytes % (auto) 5.8 %; Neutrophils # (auto) 5.09 K/uL (1.4-6.5); Platelet Count 206 K/uL (130-400); RDW Standard Deviation 48.6 fL (36.4-46.3); Red Blood Count 4.08 M/uL (4.2-5.4); White Blood Count 6.71 K/uL (4.8-10.8)
[2019-04-23] MEDS ORDERED: AZITHROMYCIN 250 MG TAB PO SCH (09:00)
[2019-04-23] MEDS: cefTRIAXone SODIUM 1,000 MG/50 ML BAG IV SCH (09:09)
[2019-04-23 09:11] LABS: Albumin Level 2.9 gm/dl (3.4-5.0); BUN Creatinine Ratio 8.9 (10-20); Calcium 8.3 mg/dl (8.5-10.1); Creatinine Clr Calc Pharmacy 54.3 ml/min; Est GFR (African American) 68.7; Est GFR (Non-African American) 59.3; Potassium 3.7 mmol/L (3.5-5.1)
[2019-04-23 09:15] LABS: Albumin Globulin Ratio 0.8 (0.9-2); Bilirubin,Total 0.2 mg/dl (0.2-1); Globulin 3.7 gm/dl (2.5-4.0); Total Protein 6.6 gm/dl (6.4-8.2)
[2019-04-23] MEDS: ASPIRIN 81 MG ECTAB PO SCH (09:23)
[2019-04-23] MEDS: LORATADINE 10 MG TAB PO SCH (09:24)
[2019-04-23] MEDS: guaiFENesin 600 MG TABCR PO SCH (09:27)
[2019-04-23] MEDS: VITAMIN B COMPLEX TAB PO SCH (09:27)
[2019-04-23] MEDS: lisinopriL 5 MG TAB PO SCH (09:28)
[2019-04-23] MEDS: ACETAMINOPHEN 325 MG TAB PO PRN (10:37)
--- NOTE | 2019-04-23 17:32 | Discharge Summary ---
Date of Service April 23, 2019 Admission HPI Per Admitting Provider Mrs. Ramirez is an otherwise healthy 69 yo woman who presented to the ED this evening with fevers/chills, generalized weakness and fatigue, productive cough and chest tightness. She complained of a preceding viral prodrome of upper respiratory tract symptoms over the past 2 weeks. She started to feel improvement in these symptoms before suddenly getting worse 2 days ago. Her fevers were as high as 102.6 at home. Tylenol was used as an anti-pyretic every 6 hours. She attempted to get an appointment with her PCP today but was advised by nurse to come to the emergency room. She is not in any discomfort at present. She endorses several sick contacts, although no one with a diagnosis of PNA. She has not traveled outside the [place] int he past 6 months. No risk factors for HCAP (does not live in a fdc, not on a ventilator, no hospitalizations in the past 90 days). In the ED she was satting as low as 85 on room air, which improved with supplemental O2. She was tachycardic at 102, and febrile at 39.4. Her WBC was mildly elevated at 11.64 with a left shift. Procalcitonin was WNL. Influenza negative. CXR remarkable for a focal parenchymal infiltrate right midlung. She was given one dose of IV ceftriaxone 2,000mg, one dose of IV Azithromycin 500mg and a 1L bolus of normal saline. Principal Diagnosis Community acquired Pneumonia, Acute respiratory failure with hypoxia, Sepsis Discharge Exam Constitutional WD/WN, vitals as above Eyes + anicteric sclerae ENMT external ear and nose normal, oropharynx normal Neck trachea midline, no thyromegaly Respiratory normal respiratory effort, lungs clear to auscultation Cardiovascular RRR, no murmur, no edema Gastrointestinal (Abdomen) normal bowel sounds, soft, nontender, no hepatosplenomegaly Musculoskeletal Extremities: extremities normal to inspection; no cyanosis and no clubbing Skin no rashes, warm and dry Neurologic moves all extremities and awake; no focal motor deficits Psychiatric A+Ox3, euthymic affect Discharge Data Allergies Allergy/AdvReac Type Severity Reaction Status Date / Time prochlorperazine Allergy Severe Anaphylaxis Verified 04/21/19 21:24 Consultations 04/21/19 18:47 ED Decision to Admit Stat Ordered Studies CXR Hospital Course (1) Pneumonia: Likely community acquired as patient has no risk factors for HCAP. In the ED she was satting as low as 85 on room air, which improved to 94 with supplemental O2. She was tachycardic at 102, and febrile at 39.4. Her WBC was mildly elevated at 11.64 with a left shift. Procalcitonin was WNL. Influenza negative. CXR remarkable for a focal parenchymal infiltrate right midlung. She was given one dose of IV ceftriaxone 2,000mg, one dose of IV Azithromycin 500mg and a 1L bolus of normal saline. Much improved now, weaned off O2, now afebrile, no growth in blood cultures, ambulating the halls without dyspnea, and leukocytosis is now resolved. Not able to give a sputum culture is nonproductive cough. -received ceftriaxone, azithromycin and convert to p.o. upon discharge-will complete a 5 day course of azithro and 7 day course of cefdinir -Will need follow-up chest x-ray in 4 to 6 weeks to ensure resolution of infiltrate (2) Sepsis: - SIRS criteria met (temperature of 39.4, pulse 102) with infectious source identified-pneumonia radiographically and clinically Was not severe sepsis, BPs remained acceptable -now resolved Treated with IV fluids and IV antibiotics - blood cultures pending-no growth to date (3) Hypoxemia: Was hypoxic upon admission which is now resolved with treating pneumonia Was ambulating without dyspnea prior to discharge on room air (4) HTN (hypertension), benign: Controlled -Continue lisinopril 5 mg daily -Continue aspirin 81 mg daily (5) DVT prophylaxis: DVT ppx: Lovenox, 40mg, SQ, daily CODE: FULL Disposition-stable for dc to home Total Time Total Time Spent Total Time Spent (In Minutes): >30 min Total Time Includes: Examination of the Patient, Discharge Planning and Medication Reconciliation Discharge Plan Discharge Items Patient Disposition: Home - Self-Care Reason For Visit: COMMUNITY ACQUIRED PNA Discharge Diagnosis: Community acquired pneumonia Condition on Discharge: Good Goals: You were hospitalized for an acute medical problem. During your stay at [facility], we made an effort to correct the problem that brought you to the hospital while keeping you as comfortable as possible. Medications were used to bring your condition under control and your discharge instructions will include directions for any medications you should take after leaving the hospital. Please make sure you see your Primary Care Provider as part of your follow up plan. Activity: As commented below Lifting: Gradually increase as tolerated Bathing: No limitations Exercise/Sports: Gradually increase as tolerated Driving/Machine Use: Resume 1 day after discharge Non-emergency contact: Primary Care Provider Call non-emergency contact if: you have any medication questions, your symptoms worsen, your pain is not controlled, your pain is worsening, your pain is unusual for you, your pain is concerning for you, you have a fever and your temperature is above 101 Follow-up/Referrals: Pepito Telles MD [Primary Care Provider] - 05/01/19 10:00 am (Please, follow up at Dr. Telles's office with his associate, Celi Evans PA-C, on May 01 at 10:00 am. *If you need to change this appointment, call their office at [phone].) Diet: Heart Healthy Addtl Attending Provider Instructions: Please finish out the course of antibiotics as prescribed. You should follow up with Dr. Telles as scheduled for you. If you develop worsening shortness of breath, profuse diarrhea or abdominal pain, high fever (>101), or have any other acute concerns, please contact your doctor's office or come to the ER. Pending Studies at Discharge: Yes (Final blood culture result) Stand-Alone Forms: My [facility] Medications and DC Order Prescriptions: Continued loratadine 10 mg tablet 10 mg PO DAILY RF: 0 aspirin 81 mg tablet 81 mg PO QAM Qty: 30 RF: 0 lisinopril 5 mg tablet 5 mg PO DAILY Qty: 90 RF: 3 No Action cholecalciferol (vitamin D3) 4,000 unit capsule 4,000 units PO DAILY RF: 0 Discharge Orders: Discharge Order (Routine); Ordered 04/23/19 Ordered By: Meghan Pavon Admission Data Admit Date/Time: 04/21/19 19:54 Attending Provider: Meghan Pavon Admit Provider: Aspen Wright Primary Care Provider: Pepito Telles Other Providers: Jerilyn Gauthier Other Interventions: Discharge Summary Assessment (RN) Last Done: 04/23/19 17:33 DC Date/Time DO NOT enter until pt leaves facility: 04/23/19 17:57
== END 2019-04-23 17:57 | disposition home or self-care (01) | DRG 871 ==
LOC: ED 17:00 → SUATTDRO 19:54 → 2W 19:54